=== PATIENT | female | born 1945 | race Caucasian/White ===

== ENCOUNTER 2017-07-14 18:53 | Emergency (ER) | payer MEDICARE | END 2017-07-14 20:40 | disposition left against medical advice (07) | LOC: ER 18:53 | DX: Z53.21 Procedure and treatment not carried out due to patient leaving prior to being seen by health care provider (principal) ==

== ENCOUNTER → 2017-07-14 | Outpatient (CLI) | payer MEDICARE ==
[~2017-07-14] MED LIST: ACEASPCAF PO; CYCL10 PO; GABA100 PO; GLIM2 PO; HYDACE5325 PO; IBUP800 PO; INSULANPEN PO; LISI5 PO; METF500 PO; OXYACE5T PO; RXCYCL10 PO; RXHYD5325 PO
[2017-07-14 16:39] LABS: BASOPHILS ABSOLUTE AUTO 0.06 K/mm3 (0.00-0.23); BASOPHILS PERCENT AUTO 1 % (0-2); EOSINOPHILS ABSOLUTE AUTO 0.04 K/mm3 (0.00-0.68); EOSINOPHILS PERCENT AUTO 0 % (0-6); Hematocrit 37.7 % (33.0-51.0); Hemoglobin 12.7 g/dL (11.5-16.0); IMMATURE GRAN ABSOLUTE AUTO 0.05 K/mm3 (0.00-0.10); IMMATURE GRAN PERCENT AUTO 0 % (0-1); LYMPHOCYTES ABSOLUTE AUTO 1.42 K/mm3 (0.84-5.20); LYMPHOCYTES PERCENT AUTO 12 % (21-46); MONOCYTES ABSOLUTE AUTO 1.25 K/mm3 (0.16-1.47); MONOCYTES PERCENT AUTO 11 % (4-13); Mean Corpuscular HGB 28.7 pg (26.0-34.0); Mean Corpuscular HGB Conc 33.7 g/dL (31.5-36.5); Mean Corpuscular Volume 85 fL (80-100); Mean Platelet Volume 12.1 fL (9.1-12.4); NEUTROPHILS ABSOLUTE AUTO 9.14 K/mm3 (1.96-9.15); NEUTROPHILS PERCENT AUTO 76 % (41-73); Platelet Count 253 K/mm3 (150-400); RDW Coefficient Variation 13.6 % (11.7-14.2); RDW Standard Deviation 42.5 fL (35.1-46.3); Red Blood Cell Count 4.43 M/mm3 (3.80-5.20); White Blood Cell Count 11.96 K/mm3 (4.00-11.30)
[2017-07-14 16:42] LABS: Bun/Creatinine Ratio 18.9 (12.0-20.0); Creatinine, Blood 1.43 mg/dL (0.40-1.00); Potassium, Blood 4.7 mmol/L (3.5-5.5)
== END | disposition home or self-care (01) ==
LOC: LAB EV 16:33
PROVIDERS: Physician Assistant Surgical
DX: N39.0 Urinary tract infection, site not specified (principal)
CPT/HCPCS: 80048; 85025; 87077; 87086; 87186

== ENCOUNTER → 2017-07-15 | Outpatient (CLI) | payer MEDICARE ==
[2017-07-15 08:48] LABS: BASOPHILS ABSOLUTE AUTO 0.06 K/mm3 (0.00-0.23); BASOPHILS PERCENT AUTO 1 % (0-2); EOSINOPHILS ABSOLUTE AUTO 0.16 K/mm3 (0.00-0.68); EOSINOPHILS PERCENT AUTO 2 % (0-6); Hematocrit 35.6 % (33.0-51.0); Hemoglobin 12.1 g/dL (11.5-16.0); IMMATURE GRAN ABSOLUTE AUTO 0.03 K/mm3 (0.00-0.10); IMMATURE GRAN PERCENT AUTO 0 % (0-1); LYMPHOCYTES ABSOLUTE AUTO 1.23 K/mm3 (0.84-5.20); LYMPHOCYTES PERCENT AUTO 12 % (21-46); MONOCYTES ABSOLUTE AUTO 1.18 K/mm3 (0.16-1.47); MONOCYTES PERCENT AUTO 12 % (4-13); Mean Corpuscular HGB 28.7 pg (26.0-34.0); Mean Corpuscular Volume 84 fL (80-100); NEUTROPHILS ABSOLUTE AUTO 7.62 K/mm3 (1.96-9.15); NEUTROPHILS PERCENT AUTO 74 % (41-73); Platelet Count 235 K/mm3 (150-400); RDW Coefficient Variation 13.5 % (11.7-14.2); RDW Standard Deviation 41.8 fL (35.1-46.3); Red Blood Cell Count 4.22 M/mm3 (3.80-5.20); White Blood Cell Count 10.28 K/mm3 (4.00-11.30)
[2017-07-15 08:58] LABS: Calcium, Blood 8.8 mg/dL (8.5-10.1); Creatinine, Blood 1.22 mg/dL (0.40-1.00); Potassium, Blood 4.5 mmol/L (3.5-5.5)
== END ==
LOC: LAB EV 08:42
PROVIDERS: Physician Assistant Surgical
DX: R42 Dizziness and giddiness (principal)
CPT/HCPCS: 80048; 85025

== ENCOUNTER 2018-09-20 15:22 | Inpatient (IN) | payer MEDICARE ==
[~2018-09-20] VITALS: Ht 165.1 cm; Wt 71.7 kg
[~2018-09-20 15:22] MED LIST changes: -GABA100 PO; +GABA300 PO; -INSULANPEN PO; +INSULANPEN SC; -LISI5 PO; +Prinivil10 MG PO
[2018-09-20 16:41] LABS: BASOPHILS ABSOLUTE AUTO 0.06 K/mm3 (0.00-0.23); BASOPHILS PERCENT AUTO 1 % (0-2); EOSINOPHILS ABSOLUTE AUTO 0.16 K/mm3 (0.00-0.68); EOSINOPHILS PERCENT AUTO 2 % (0-6); Hematocrit 35.9 % (33.0-51.0); Hemoglobin 11.7 g/dL (11.5-16.0); IMMATURE GRAN ABSOLUTE AUTO 0.05 K/mm3 (0.00-0.10); IMMATURE GRAN PERCENT AUTO 1 % (0-1); LYMPHOCYTES ABSOLUTE AUTO 1.94 K/mm3 (0.84-5.20); LYMPHOCYTES PERCENT AUTO 19 % (21-46); MONOCYTES ABSOLUTE AUTO 0.77 K/mm3 (0.16-1.47); MONOCYTES PERCENT AUTO 8 % (4-13); Mean Corpuscular HGB 28.5 pg (26.0-34.0); Mean Corpuscular HGB Conc 32.6 g/dL (31.5-36.5); Mean Corpuscular Volume 87 fL (80-100); NEUTROPHILS ABSOLUTE AUTO 7.23 K/mm3 (1.96-9.15); NEUTROPHILS PERCENT AUTO 71 % (41-73); Platelet Count 237 K/mm3 (150-400); RDW Coefficient Variation 13.9 % (11.7-14.2); RDW Standard Deviation 44.6 fL (35.1-46.3); Red Blood Cell Count 4.11 M/mm3 (3.80-5.20); White Blood Cell Count 10.21 K/mm3 (4.00-11.30)
[2018-09-20] MEDS ORDERED: Prozac20 MG PO (16:52)
[2018-09-20 16:54] LABS: Albumin, Blood 3.7 g/dL (3.4-5.0); Bilirubin, Total 0.3 mg/dL (0.1-1.0); Bun/Creatinine Ratio 16.1 (12.0-20.0); Calcium, Blood 8.8 mg/dL (8.5-10.1); Creatinine, Blood 1.37 mg/dL (0.40-1.00); Globulin, Blood 3.6 g/dL (2.2-4.0); Potassium, Blood 4.8 mmol/L (3.5-5.5); Total Protein, Blood 7.3 g/dL (6.4-8.2)
[2018-09-20] MEDS ORDERED: AMLO5 PO (16:54)
[2018-09-20] MEDS ORDERED: GLIP2.5ER PO (16:55)
[2018-09-20] MEDS ORDERED: GABA300 PO (17:05)
[2018-09-20] MEDS ORDERED: Aspirin EC81 MG PO (17:08)
--- NOTE | 2018-09-20 19:02 | NUR ---
admit to room per liz, oriented to call system
--- NOTE | 2018-09-21 05:08 | NUR ---
PT ADMITTED FROM ED LAST NIGHT AT APPROX 1900 FOR RIGHT HIP FX. ORTHO CONULT ANSWERING MACHINE NOTIFIED. PT A&O X4, VS WNL. GIVEN 100 MCG OF FENTANYL AND 1MG DILAUDID BEFORE ARRIVING TO UNIT. WILL CTM PAIN AND TX PER EMAR.
[2018-09-21 05:59] LABS: Source, Urine Clean Catch
[2018-09-21 06:11] LABS: BASOPHILS ABSOLUTE AUTO 0.06 K/mm3 (0.00-0.23); BASOPHILS PERCENT AUTO 1 % (0-2); EOSINOPHILS ABSOLUTE AUTO 0.01 K/mm3 (0.00-0.68); EOSINOPHILS PERCENT AUTO 0 % (0-6); Hematocrit 34.6 % (33.0-51.0); IMMATURE GRAN ABSOLUTE AUTO 0.07 K/mm3 (0.00-0.10); IMMATURE GRAN PERCENT AUTO 1 % (0-1); LYMPHOCYTES ABSOLUTE AUTO 0.96 K/mm3 (0.84-5.20); LYMPHOCYTES PERCENT AUTO 8 % (21-46); MONOCYTES PERCENT AUTO 8 % (4-13); Mean Corpuscular HGB 28.1 pg (26.0-34.0); Mean Corpuscular HGB Conc 31.8 g/dL (31.5-36.5); Mean Corpuscular Volume 89 fL (80-100); Mean Platelet Volume 12.1 fL (9.1-12.4); NEUTROPHILS PERCENT AUTO 83 % (41-73); Platelet Count 205 K/mm3 (150-400); RDW Coefficient Variation 14.3 % (11.7-14.2); Red Blood Cell Count 3.91 M/mm3 (3.80-5.20)
[2018-09-21 06:13] LABS: Appearance, Urine Clear (Clear); Bilirubin, Urine Neg (Neg); Blood, Urine Neg (Neg); Color, Urine Yellow (P-Yellow); Glucose Qualitative, Urine Neg (Neg); Ketones, Urine Neg (Neg); Leukocyte Esterase, Urine 1+ (Neg); Nitrite, Urine Neg (Neg); Protein, Urine 1+ (Neg); Urobilinogen, Urine NORM (Normal)
[2018-09-21 06:20] LABS: Bacteria Rare /hpf; Mucus Light (0-Heavy); Red Blood Cells, Urine Not Seen /hpf (0-2); Squamous Epithelial Cells Few /hpf (Few); White Blood Cells, Urine 0-2 /hpf (0-5)
[2018-09-21 06:49] LABS: Bun/Creatinine Ratio 26.5 (12.0-20.0); Calcium, Blood 8.3 mg/dL (8.5-10.1); Creatinine, Blood 1.02 mg/dL (0.40-1.00); Potassium, Blood 4.6 mmol/L (3.5-5.5)
--- NOTE | 2018-09-21 13:19 | NUR ---
Discharge instructions reviewed with patient. Patient verbalizes understanding. Copy given to patient to take home. PATIENT DENIES NAUSEA. MEDICATED FOR PAIN. ABLE TO STAND AND WALK STEADY ON FEET. Discharged via wheelchair to private car for ride home.
--- NOTE | 2018-09-21 14:20 | NUR ---
PT TAKEN TO O.R.
--- NOTE | 2018-09-21 14:21 | NUR ---
PT INTO SDS VIA BED FROM 218. PT MEDICATED FOR PAIN, DROWSY. ABLE TO RESOPND APPROPRAITLY TO QUESTIONS. SPO2 MID 80'S ON ROOM AIR, PLACED ONTO 3LNC. SPO2 INCREASED TO 95%. History, Chart, Medications and Allergies reviewed before start of procedure.Patient confirms NPO status and agrees with scheduled surgery.
--- NOTE | 2018-09-21 16:03 | NUR ---
09/21/18 1603 Frankie Jones PT ARRIVED TO OR WITH ACEVEDO CATH IN PLACE. PT HAD ANCEF 2GRAMS IVPB GIVEN BY DR RAMON AT 1535.
--- NOTE | 2018-09-21 17:42 | NUR ---
SHIFT SUMMARY PT A&OX4, VSS, R HIP CLOSED FX, PAIN MANAGED PER EMAR. NPO. WENT TO OR AT 1400 FOR REPAIR. WILL GIVE REPORT TO ONCOMING NOEL SCHMIDT.
--- NOTE | 2018-09-22 04:42 | NUR ---
SHIFT SUMMARY: PT POD #1 FOR NAILING OF R HIP. DISORIENTED TO TIME AND PLACE UPON WAKING UP. PT IS ABLE TO RECALL EVENT. AQUACEL TO RIGHT HIP CDI. ICE PACK IN PLACE. POOR PO INTAKE, FLUIDS INFUSING. DENIES N/V. GIVEN NORCO 10MG FOR PAIN PER EMAR. PT SLEEPING MOST OF SHIFT. VS WNL. O2 AT 93% ON 3L O2. PT ENC TO DEEP BREATH. ACEVEDO IN PLACE AND DRAINING CLEAR YELLOW URINE.
[2018-09-22 05:00] LABS: BASOPHILS ABSOLUTE AUTO 0.03 K/mm3 (0.00-0.23); BASOPHILS PERCENT AUTO 0 % (0-2); EOSINOPHILS ABSOLUTE AUTO 0.02 K/mm3 (0.00-0.68); EOSINOPHILS PERCENT AUTO 0 % (0-6); Hematocrit 26.9 % (33.0-51.0); Hemoglobin 8.8 g/dL (11.5-16.0); IMMATURE GRAN ABSOLUTE AUTO 0.04 K/mm3 (0.00-0.10); IMMATURE GRAN PERCENT AUTO 0 % (0-1); LYMPHOCYTES ABSOLUTE AUTO 1.39 K/mm3 (0.84-5.20); LYMPHOCYTES PERCENT AUTO 12 % (21-46); MONOCYTES ABSOLUTE AUTO 1.24 K/mm3 (0.16-1.47); MONOCYTES PERCENT AUTO 11 % (4-13); Mean Corpuscular HGB 28.9 pg (26.0-34.0); Mean Corpuscular HGB Conc 32.7 g/dL (31.5-36.5); Mean Corpuscular Volume 89 fL (80-100); Mean Platelet Volume 11.7 fL (9.1-12.4); NEUTROPHILS ABSOLUTE AUTO 8.81 K/mm3 (1.96-9.15); NEUTROPHILS PERCENT AUTO 76 % (41-73); Platelet Count 157 K/mm3 (150-400); RDW Coefficient Variation 14.2 % (11.7-14.2); RDW Standard Deviation 45.5 fL (35.1-46.3); Red Blood Cell Count 3.04 M/mm3 (3.80-5.20); White Blood Cell Count 11.53 K/mm3 (4.00-11.30)
--- NOTE | 2018-09-22 16:49 | NUR ---
SHIFT SUMMARY PT A&OX4, VSS, RA >92%, CBG'S COVERAGE INDICATED. POD1 L HIP NAIL, 2 AQUACEL CDI. PAIN MANAGED W/5 MG NORCO. BOB PO, DENIES N&V, BOB PO, INTAKE IMPROVED TODAY. KRISTINA DC'D, AWAITING POST VOID. AMB 2 PP MAX ASSIST TO CHAIR, BEEN IN CHAIR T/O SHIFT, HAD PT STAND AND DO LEG/FEET EXERCISES X1. PLEASANT & COOPERATIVE. REPORT GIVEN TO BORA SCHMIDT.
--- NOTE | 2018-09-22 17:02 | NUR ---
ASSUMED CARE OF PATIENT AT THIS TIME.
[2018-09-23 04:40] LABS: BASOPHILS ABSOLUTE AUTO 0.04 K/mm3 (0.00-0.23); BASOPHILS PERCENT AUTO 0 % (0-2); EOSINOPHILS ABSOLUTE AUTO 0.08 K/mm3 (0.00-0.68); EOSINOPHILS PERCENT AUTO 1 % (0-6); Hematocrit 28.8 % (33.0-51.0); Hemoglobin 9.5 g/dL (11.5-16.0); IMMATURE GRAN ABSOLUTE AUTO 0.08 K/mm3 (0.00-0.10); IMMATURE GRAN PERCENT AUTO 1 % (0-1); LYMPHOCYTES ABSOLUTE AUTO 0.96 K/mm3 (0.84-5.20); LYMPHOCYTES PERCENT AUTO 8 % (21-46); MONOCYTES ABSOLUTE AUTO 1.37 K/mm3 (0.16-1.47); MONOCYTES PERCENT AUTO 11 % (4-13); Mean Corpuscular HGB 29.6 pg (26.0-34.0); Mean Corpuscular Volume 90 fL (80-100); NEUTROPHILS ABSOLUTE AUTO 9.89 K/mm3 (1.96-9.15); NEUTROPHILS PERCENT AUTO 80 % (41-73); Platelet Count 152 K/mm3 (150-400); Red Blood Cell Count 3.21 M/mm3 (3.80-5.20); White Blood Cell Count 12.42 K/mm3 (4.00-11.30)
--- NOTE | 2018-09-23 07:50 | NUR ---
18G IV PRESENT TO RFA UPON ASSESSMENT. WNL AT THIS TIME.
--- NOTE | 2018-09-23 11:55 | NUR ---
DISCHARGE REPORT WAS CALLED TO LIBRADO SCHMIDT AT [facility] AT APPROXIMATELY 1045. PT WAS DISCHARGED WITH [facility] AT 1105. ORDERS, SCRIPTS, AND DRESSINGS PROVIDED FOR UV. PT GIVEN PAIN MEDICATION PRIOR TO DISCHARGE. BOWEL CARE GIVEN PRIOR TO DISCHARGE AND LIBRADO SCHMIDT NOTIFIED THAT PT REPORTED LAST BM ON 09/20/18.
--- NOTE | 2018-09-23 12:01 | NUR ---
IV REMOVED PRIOR TO DISCHARGE.
== END 2018-09-23 11:05 | DRG 482 ==
LOC: ER 15:22 → SURS 17:44
PROVIDERS: Emergency Medicine; Orthopaedic Surgery; ADMIT Hospitalist
PROC: 0QS636Z Reposition Right Upper Femur with Intramedullary Internal Fixation Device, Percutaneous Approach (ICD-10-PCS; principal; 2018-09-21 14:15)
DX: S72.141A Displaced intertrochanteric fracture of right femur, initial encounter for closed fracture (principal); W18.30XA Fall on same level, unspecified, initial encounter; I10 Essential (primary) hypertension; F41.9 Anxiety disorder, unspecified; E11.40 Type 2 diabetes mellitus with diabetic neuropathy, unspecified; Z79.4 Long term (current) use of insulin
CPT/HCPCS: 36415; 71045; 73502; 73552; 80048; 80053; 81001; 82947; 85025; 87086; 93005; 93010; 96374; 96376; 97162; 97530; 99285-25; A9270-GY; C1713; C1769; J0690; J1170; J1650; J2060; J2270; J2704; J3010; J3480; J7120

== ENCOUNTER → 2019-01-16 | Outpatient (CLI) | payer MEDICARE ==
[~2019-01-16] MED LIST changes: +AMLO5 PO; +Aspirin EC81 MG PO; +GLIP2.5ER PO; +Prozac20 MG PO
[2019-01-18 16:07] LABS: HPV 16 Negative (Negative); HPV 18 Negative (Negative); HPV OTHER HR TYPES Negative (Negative)
== END | disposition home or self-care (01) ==
LOC: LAB SHORT 17:19 → LAB 17:19
PROVIDERS: Nurse Practitioner Women's Health
DX: Z12.72 Encounter for screening for malignant neoplasm of vagina (principal)
CPT/HCPCS: 87624; G0123

== ENCOUNTER 2020-02-24 10:15 | Emergency (ER) | payer MEDICARE ==
[~2020-02-24] VITALS: Ht 160 cm; Wt 65.8 kg
[2020-02-24 10:55] LABS: Calcium, Ionized (POC) 1.21 mmol/L (1.10-1.46); Chloride (POC) 103 mmol/L (98-108); Glucose (ISTAT POC) 174 mg/dL (70-99); Hemoglobin (POC) 15.3 g/dL (12.0-16.0); Potassium (POC) 4.1 mmol/L (3.5-5.5); Sodium (POC) 139 mmol/L (135-148); Total CO2 (POC) 23 mmol/L (21-32)
[2020-02-24] MEDS ORDERED: DOCU100 PO (12:31)
[2020-02-24] MEDS ORDERED: SENNA LAXATIVE8.6 MG PO (12:45)
== END 2020-02-24 12:59 | disposition home or self-care (01) ==
LOC: ER 10:15
PROVIDERS: Emergency Medicine
DX: K59.00 Constipation, unspecified (principal); S36.63XA Laceration of rectum, initial encounter; I10 Essential (primary) hypertension; E11.9 Type 2 diabetes mellitus without complications; Z79.4 Long term (current) use of insulin; Z79.82 Long term (current) use of aspirin; Z79.899 Other long term (current) drug therapy; X50.9XXA Other and unspecified overexertion or strenuous movements or postures, initial encounter
CPT/HCPCS: 36415; 74019; 80047; 85014

== ENCOUNTER → 2021-10-23 | Outpatient (CLI) | payer MEDICARE ==
[~2021-10-23] MED LIST changes: +DOCU100 PO; +ONDA4ODT MM; +PRAVASTATIN SOD10 MG; +Ropinirole HCl0.5 MG; +SENNA LAXATIVE8.6 MG PO; +TRAM50
[2021-10-23 10:58] LABS: Source, Urine Voided
[2021-10-23 12:10] LABS: Appearance, Urine Clear (Clear); Bilirubin, Urine Neg (Neg); Blood, Urine Neg (Neg); Color, Urine Yellow (P-Yellow); Glucose Qualitative, Urine Neg (Neg); Ketones, Urine Neg (Neg); Leukocyte Esterase, Urine 3+ (Neg); Nitrite, Urine Pos (Neg); Protein, Urine Neg (Neg); Urobilinogen, Urine NORM (Normal)
[2021-10-23 12:13] LABS: Potassium, Urine, Random 7.7 mmol/L (12.0-75.0)
[2021-10-23 13:03] LABS: Red Blood Cells, Urine 0-2 /hpf (0-2)
[2021-10-23 13:04] LABS: Bacteria Many /hpf; Squamous Epithelial Cells Not Seen /hpf (Few)
== END | disposition home or self-care (01) ==
LOC: LAB 10:54 → LAB SHORT 10:54
PROVIDERS: Internal Medicine Nephrology
DX: N18.31 Chronic kidney disease, stage 3a (principal)
CPT/HCPCS: 81001; 83935; 84133

== ENCOUNTER → 2023-03-21 | Outpatient (CLI) | payer MEDICARE ==
[2023-03-21 18:08] LABS: U Amphetamine Screen Not Detected; U Barbituate Screen Not Detected; U Benzodiazapine Screen Not Detected; U Buprenorphine Screen Not Detected; U Cannabinoids Screen Not Detected; U Cocaine Screen Not Detected; U Methadone Screen Not Detected; U Methamphetamine Screen Not Detected; U Opiates Screen Not Detected; U Oxycodone Screen Not Detected; U Phencyclidine Screen Not Detected; U Propoxyphene Screen Not Detected
== END ==
LOC: LAB 16:06 → LAB SHORT 16:06
PROVIDERS: Family Medicine
DX: Z51.81 Encounter for therapeutic drug level monitoring (principal); Z79.891 Long term (current) use of opiate analgesic

== ENCOUNTER → 2023-12-05 | Outpatient (CLI) | payer MEDICARE ==
[2023-12-05 17:26] LABS: Creatinine, Urine Random 59.6 mg/dL (27.00-270.00)
== END ==
LOC: LAB 15:23 → LAB SHORT 15:23
PROVIDERS: Family Medicine
DX: E11.9 Type 2 diabetes mellitus without complications (principal)
CPT/HCPCS: 82043; 82570

== ENCOUNTER 2024-02-29 12:48 | Observation (INO) | payer MEDICARE ==
[~2024-02-29] VITALS: Ht 165.1 cm; Wt 63.1 kg
[~2024-02-29 12:48] MED LIST changes: -TRAM50; +TRAM50 PO
[2024-02-29 14:30] LABS: BASOPHILS ABSOLUTE AUTO 0.08 K/mm3 (0.00-0.23); BASOPHILS PERCENT AUTO 1 % (0-2); EOSINOPHILS ABSOLUTE AUTO 0.09 K/mm3 (0.00-0.68); EOSINOPHILS PERCENT AUTO 1 % (0-6); Hematocrit 31.9 % (33.0-51.0); Hemoglobin 10.7 g/dL (11.5-16.0); IMMATURE GRAN ABSOLUTE AUTO 0.11 K/mm3 (0.00-0.10); IMMATURE GRAN PERCENT AUTO 1 % (0-1); LYMPHOCYTES ABSOLUTE AUTO 1.44 K/mm3 (0.84-5.20); LYMPHOCYTES PERCENT AUTO 9 % (21-46); MONOCYTES ABSOLUTE AUTO 0.77 K/mm3 (0.16-1.47); MONOCYTES PERCENT AUTO 5 % (4-13); Mean Corpuscular HGB 29.3 pg (26.0-34.0); Mean Corpuscular HGB Conc 33.5 g/dL (31.5-36.5); Mean Corpuscular Volume 87 fL (80-100); NEUTROPHILS ABSOLUTE AUTO 12.87 K/mm3 (1.96-9.15); NEUTROPHILS PERCENT AUTO 84 % (41-73); Platelet Count 527 K/mm3 (150-400); RDW Coefficient Variation 14.6 % (11.7-14.2); RDW Standard Deviation 47.2 fL (35.1-46.3); Red Blood Cell Count 3.65 M/mm3 (3.80-5.20); White Blood Cell Count 15.36 K/mm3 (4.00-11.30)
[2024-02-29 14:53] LABS: Albumin, Blood 2.7 g/dL (3.4-5.0); Albumin/Globulin Ratio 0.6 (0.8-1.8); Bilirubin, Total 0.5 mg/dL (0.1-1.0); Bun/Creatinine Ratio 15.3 (12.0-20.0); Calcium, Blood 9.6 mg/dL (8.5-10.1); Creatinine, Blood 1.44 mg/dL (0.40-1.00); Globulin, Blood 4.6 g/dL (2.2-4.0); Potassium, Blood 4.6 mmol/L (3.5-5.5); Total Protein, Blood 7.3 g/dL (6.4-8.2)
[2024-02-29] MEDS ORDERED: ATOR10 PO (21:02)
[2024-02-29] MEDS ORDERED: NS 1,000 ML IV SCH (21:35)
[2024-03-01 00:01] LABS: Source, Urine Clean Catch
[2024-03-01 00:17] LABS: Bilirubin, Urine Neg (Neg); Blood, Urine 3+ (Neg); Glucose Qualitative, Urine Neg (Neg); Ketones, Urine Neg (Neg); Leukocyte Esterase, Urine 3+ (Neg); Nitrite, Urine Neg (Neg); Protein, Urine 2+ (Neg); Urobilinogen, Urine NORM (Normal)
[2024-03-01 00:46] LABS: Appearance, Urine Hazy (Clear); Color, Urine Yellow (P-Yellow)
[2024-03-01 00:47] LABS: Bacteria Many /hpf; Red Blood Cells, Urine 0-2 /hpf (0-2); Squamous Epithelial Cells Few /hpf (Few); White Blood Cells, Urine 50-100 /hpf (0-5)
[2024-03-01] MEDS ORDERED: CefTRIAXone Sodium 1,000 MG in NS 100 ML IV ONE (01:05)
[2024-03-01] MEDS ORDERED: Acetaminophen 325 MG TABLET PO PRN (01:50)
[2024-03-01] MEDS ORDERED: Ondansetron HCl 2 MG / ML 2ML Vial IV PRN (01:50)
[2024-03-01 03:32] LABS: BASOPHILS ABSOLUTE AUTO 0.11 K/mm3 (0.00-0.23); BASOPHILS PERCENT AUTO 1 % (0-2); EOSINOPHILS ABSOLUTE AUTO 0.29 K/mm3 (0.00-0.68); EOSINOPHILS PERCENT AUTO 2 % (0-6); Hematocrit 28.1 % (33.0-51.0); Hemoglobin 9.1 g/dL (11.5-16.0); IMMATURE GRAN ABSOLUTE AUTO 0.08 K/mm3 (0.00-0.10); IMMATURE GRAN PERCENT AUTO 1 % (0-1); LYMPHOCYTES ABSOLUTE AUTO 1.34 K/mm3 (0.84-5.20); LYMPHOCYTES PERCENT AUTO 10 % (21-46); MONOCYTES ABSOLUTE AUTO 1.02 K/mm3 (0.16-1.47); MONOCYTES PERCENT AUTO 7 % (4-13); Mean Corpuscular HGB 28.5 pg (26.0-34.0); Mean Corpuscular HGB Conc 32.4 g/dL (31.5-36.5); Mean Corpuscular Volume 88 fL (80-100); Mean Platelet Volume 10.5 fL (9.1-12.4); NEUTROPHILS ABSOLUTE AUTO 11.31 K/mm3 (1.96-9.15); NEUTROPHILS PERCENT AUTO 80 % (41-73); Platelet Count 486 K/mm3 (150-400); RDW Coefficient Variation 14.7 % (11.7-14.2); RDW Standard Deviation 47.2 fL (35.1-46.3); Red Blood Cell Count 3.19 M/mm3 (3.80-5.20); White Blood Cell Count 14.15 K/mm3 (4.00-11.30)
[2024-03-01 03:57] LABS: Albumin, Blood 2.2 g/dL (3.4-5.0); Albumin/Globulin Ratio 0.6 (0.8-1.8); Bilirubin, Total 0.3 mg/dL (0.1-1.0); Bun/Creatinine Ratio 16.3 (12.0-20.0); Calcium, Blood 8.6 mg/dL (8.5-10.1); Creatinine, Blood 1.47 mg/dL (0.40-1.00); Magnesium, Blood 2.1 mg/dL (1.6-2.4); Potassium, Blood 4.4 mmol/L (3.5-5.5); Total Protein, Blood 6.2 g/dL (6.4-8.2)
[2024-03-01 07:12] LABS: Percent Saturation 9.4 % (15.0-50.0)
[2024-03-01] MEDS ORDERED: Insulin Human Lispro 100 Units/ML 3ML Syringe SC SCH (07:30)
[2024-03-01] MEDS ORDERED: Lactobacil 2-S.Thermo-Bifido 1 1 Cap PO SCH (09:00)
[2024-03-01] MEDS ORDERED: Enoxaparin 40 MG/0.4 ML SYR SC SCH (09:00)
[2024-03-01] MEDS ORDERED: D5W-NS 1,000 ML IV SCH (10:00)
[2024-03-01] MEDS ORDERED: Lactated Ringer's 1,000 ML IV SCH (12:01)
[2024-03-01] MEDS ORDERED: OMEP20ER PO (13:26)
[2024-03-01] MEDS ORDERED: CYCLOBENZAPRINE5 MG PO (13:33)
[2024-03-01 15:34] LABS: Hematocrit 32.1 % (33.0-51.0); Hemoglobin 10.5 g/dL (11.5-16.0); Mean Corpuscular HGB 29.1 pg (26.0-34.0); Mean Corpuscular HGB Conc 32.7 g/dL (31.5-36.5); Mean Corpuscular Volume 89 fL (80-100); Mean Platelet Volume 10.1 fL (9.1-12.4); Platelet Count 551 K/mm3 (150-400); RDW Coefficient Variation 14.6 % (11.7-14.2); RDW Standard Deviation 47.5 fL (35.1-46.3); Red Blood Cell Count 3.61 M/mm3 (3.80-5.20); White Blood Cell Count 12.85 K/mm3 (4.00-11.30)
[2024-03-01 15:51] VITALS: BP 148/53
--- NOTE | 2024-03-01 16:56 | NUR ---
ADMISSION NOTE: PATIENT ADMITTED TO MED FLOOR FROM ER AT 1310. PATIENT TRASNPORTED VIA HOSPITAL BED AND TRANSFERRED SBAX1. PHYSICAL THERAPY CAME TO ASSESS PATIENT, PATIENT IS TO BE SBAX1 WITH GAIT BELT. STARTED ON LR AT 100ML/HR. PATIENT IS A&OX4 AND COOPERATIVE OF CARES. PATIENT HAS ONE SCAB TO ANTERIOR LEFT KNEE AND BRUISE TO RIGHT INNER THIGH.
[2024-03-01 20:12] VITALS: BP 167/60
[2024-03-01] MEDS ORDERED: CefTRIAXone Sodium 1,000 MG in NS 100 ML IV SCH (21:00)
--- NOTE | 2024-03-02 03:16 | NUR ---
SHIFT SUMMARY NO ACUTE EVENTS DURING THIS SHIFT. C/O NAUSEA, ZOFRAN EFFECTIVE. PT AMBULATES WELL WITH STANDBY ASSIST. SOME DISCOMFORT ON ABDOMEN DURING THIS SHIFT. NO EMESIS. BED AT THE LOWEST POSITION, CALL LIGHT WITHIN REACH. PT IS ABLE TO MAKE HER NEEDS KNOWN.
[2024-03-02 05:48] LABS: BASOPHILS ABSOLUTE AUTO 0.11 K/mm3 (0.00-0.23); BASOPHILS PERCENT AUTO 1 % (0-2); EOSINOPHILS ABSOLUTE AUTO 0.14 K/mm3 (0.00-0.68); EOSINOPHILS PERCENT AUTO 1 % (0-6); Hematocrit 29.8 % (33.0-51.0); Hemoglobin 9.6 g/dL (11.5-16.0); IMMATURE GRAN ABSOLUTE AUTO 0.07 K/mm3 (0.00-0.10); IMMATURE GRAN PERCENT AUTO 1 % (0-1); LYMPHOCYTES ABSOLUTE AUTO 1.31 K/mm3 (0.84-5.20); LYMPHOCYTES PERCENT AUTO 10 % (21-46); MONOCYTES PERCENT AUTO 6 % (4-13); Mean Corpuscular HGB 28.9 pg (26.0-34.0); Mean Corpuscular HGB Conc 32.2 g/dL (31.5-36.5); Mean Corpuscular Volume 90 fL (80-100); Mean Platelet Volume 10.5 fL (9.1-12.4); NEUTROPHILS ABSOLUTE AUTO 11.41 K/mm3 (1.96-9.15); NEUTROPHILS PERCENT AUTO 82 % (41-73); Platelet Count 519 K/mm3 (150-400); RDW Coefficient Variation 14.8 % (11.7-14.2); Red Blood Cell Count 3.32 M/mm3 (3.80-5.20); White Blood Cell Count 13.84 K/mm3 (4.00-11.30)
[2024-03-02 05:59] VITALS: BP 146/57
[2024-03-02 07:51] VITALS: BP 155/65
[2024-03-02 07:59] LABS: Albumin, Blood 2.4 g/dL (3.4-5.0); Albumin/Globulin Ratio 0.6 (0.8-1.8); Bilirubin, Total 0.3 mg/dL (0.1-1.0); Bun/Creatinine Ratio 14.5 (12.0-20.0); Calcium, Blood 8.9 mg/dL (8.5-10.1); Creatinine, Blood 1.1 mg/dL (0.40-1.00); Globulin, Blood 4.3 g/dL (2.2-4.0); Potassium, Blood 4.3 mmol/L (3.5-5.5); Total Protein, Blood 6.7 g/dL (6.4-8.2)
[2024-03-02] MEDS ORDERED: Atorvastatin 40 MG Tab PO SCH (09:31)
[2024-03-02] MEDS ORDERED: Lisinopril 10 MG Tab PO SCH (09:32)
[2024-03-02] MEDS ORDERED: AmLODIPine Besylate 5 MG Tab PO SCH (09:32)
[2024-03-02] MEDS ORDERED: Omeprazole 20 MG CapCR PO SCH (09:56)
[2024-03-02] MEDS ORDERED: Cyclobenzaprine HCl 10 MG Tab PO PRN (10:10)
[2024-03-02] MEDS ORDERED: Cefpodoxime Pr100 MG PO (13:51)
[2024-03-02] MEDS ORDERED: ONDA4 PO (13:51)
[2024-03-02] MEDS ORDERED: VISBIOME 112.51 EACH PO (13:52)
--- NOTE | 2024-03-02 14:17 | NUR ---
DISCHARGE SUMMARY: PT DISCHARGED HOME WITH SON ACCOMPANYING HER. PT EDUCATED ON DISCHARGE MEDICATIONS AND INSTRUCTIONS. PT V/U. ASSISTED PT WITH GETTING DRESSED AND PACKING UP BELONGINGS. PT ESCORTED TO POV VIA WHEELCHAIR BY ANA.
[2024-03-02] MEDS ORDERED: Aspirin 81 MG TabEC PO SCH (21:00)
[2024-03-02] MEDS ORDERED: Gabapentin 300 MG Cap PO SCH (21:00)
== END 2024-03-02 14:13 | disposition home or self-care (01) ==
LOC: ER 12:48 → ERHOLD 12:49 → MEDS 03-01 13:15 → ENPENDDIS 03-02 13:09 → MEDS 03-02 14:13
PROVIDERS: Physician Assistant; Student in an Organized Health Care Education/Training Program; ADMIT Student in an Organized Health Care Education/Training Program
DX: N39.0 Urinary tract infection, site not specified (principal); A41.9 Sepsis, unspecified organism; E11.22 Type 2 diabetes mellitus with diabetic chronic kidney disease; I12.9 Hypertensive chronic kidney disease with stage 1 through stage 4 chronic kidney disease, or unspecified chronic kidney disease; N18.9 Chronic kidney disease, unspecified; N17.9 Acute kidney failure, unspecified; D50.9 Iron deficiency anemia, unspecified; E11.40 Type 2 diabetes mellitus with diabetic neuropathy, unspecified; Z88.5 Allergy status to narcotic agent; Z88.8 Allergy status to other drugs, medicaments and biological substances; Z79.82 Long term (current) use of aspirin; Z79.899 Other long term (current) drug therapy; Z79.4 Long term (current) use of insulin
CPT/HCPCS: 36415; 71046; 80053; 81001; 82728; 82947; 83540; 83550; 83735; 84484; 85025; 85027; 87077; 87086; 87186; 93005; 93010; 96361; 96365; 96366; 96372-59; 96375; 96376; 97116; 97161; 99285-25; A9270; G0378; J0696; J1650; J2405; J7030; J7042; J7120

== ENCOUNTER 2024-11-20 20:41 | Observation (INO) | payer MEDICARE ==
[~2024-11-20] VITALS: Ht 160 cm; Wt 58.0 kg
[~2024-11-20 20:41] MED LIST changes: +ATOR10 PO; +CYCLOBENZAPRINE5 MG PO; +Cefpodoxime Pr100 MG PO; +OMEP20ER PO; +ONDA4 PO; +VISBIOME 112.51 EACH PO
[2024-11-20 21:19] LABS: BASOPHILS ABSOLUTE AUTO 0.06 K/mm3 (0.00-0.23); BASOPHILS PERCENT AUTO 1 % (0-2); EOSINOPHILS ABSOLUTE AUTO 0.04 K/mm3 (0.00-0.68); EOSINOPHILS PERCENT AUTO 0 % (0-6); Hemoglobin 13.2 g/dL (11.5-16.0); IMMATURE GRAN ABSOLUTE AUTO 0.02 K/mm3 (0.00-0.10); IMMATURE GRAN PERCENT AUTO 0 % (0-1); LYMPHOCYTES ABSOLUTE AUTO 2.39 K/mm3 (0.84-5.20); LYMPHOCYTES PERCENT AUTO 23 % (21-46); MONOCYTES ABSOLUTE AUTO 0.62 K/mm3 (0.16-1.47); MONOCYTES PERCENT AUTO 6 % (4-13); Mean Corpuscular HGB 29.3 pg (26.0-34.0); Mean Corpuscular HGB Conc 34.7 g/dL (31.5-36.5); Mean Corpuscular Volume 84 fL (80-100); NEUTROPHILS ABSOLUTE AUTO 7.12 K/mm3 (1.96-9.15); NEUTROPHILS PERCENT AUTO 70 % (41-73); Platelet Count 290 K/mm3 (150-400); RDW Coefficient Variation 13.5 % (11.7-14.2); RDW Standard Deviation 41.5 fL (35.1-46.3); Red Blood Cell Count 4.51 M/mm3 (3.80-5.20); White Blood Cell Count 10.25 K/mm3 (4.00-11.30)
[2024-11-20 21:33] LABS: Albumin, Blood 4.4 g/dL (3.4-5.0); Albumin/Globulin Ratio 1.1 (0.8-1.8); Bilirubin, Total 0.8 mg/dL (0.1-1.0); Bun/Creatinine Ratio 15.2 (12.0-20.0); Creatinine, Blood 0.86 mg/dL (0.40-1.00); Potassium, Blood 3.2 mmol/L (3.5-5.5); Total Protein, Blood 8.4 g/dL (6.4-8.2)
[2024-11-20] MEDS ORDERED: NS 1,000 ML IV SCH (22:55)
[2024-11-20 23:15] LABS: Source, Urine Clean Catch
[2024-11-20 23:19] LABS: Appearance, Urine Clear (Clear); Bilirubin, Urine Neg (Neg); Blood, Urine Neg (Neg); Color, Urine Yellow (P-Yellow); Glucose Qualitative, Urine Neg (Neg); Ketones, Urine Neg (Neg); Leukocyte Esterase, Urine Neg (Neg); Nitrite, Urine Neg (Neg); Protein, Urine 2+ (Neg); Specific Gravity, Urine 1.005 (1.003-1.022); Urobilinogen, Urine NORM (Normal); pH, Urine 6.5 (5.0-8.0)
[2024-11-20 23:34] LABS: Bacteria Few /hpf; Red Blood Cells, Urine 0-2 /hpf (0-2); Squamous Epithelial Cells Few /hpf (Few); White Blood Cells, Urine 0-2 /hpf (0-5)
[2024-11-21] VITALS (15 sets, daily range): BP systolic 143–179; BP diastolic 55–101
[2024-11-21] MEDS ORDERED: Ondansetron HCl 2 MG / ML 2ML Vial IV PRN (00:45)
[2024-11-21] MEDS ORDERED: Acetaminophen 325 MG TABLET PO PRN (00:50)
[2024-11-21] MEDS ORDERED: Potassium Chloride 40 MEQ in NS 250 ML IV ONE (00:55)
[2024-11-21] MEDS ORDERED: NS 1,000 ML IV SCH (01:00)
--- NOTE | 2024-11-21 02:25 | NUR ---
ARRIVAL TO UNIT PT ARRIVED TO UNIT FROM ED VIA GOURNEY. PT ABLE TO STAND/PIVOT TO BED c SBA R/T LINE MANAGEMENT. A&O x4, RESPONDS TO QUESTIONS APPROPRIATELY, COOPERATIVE c CARE. AGREEABLE c NPO STATUS, DENIES N/V. ATTENDS IN USE. PT REPORTS ABD PAIN TOLERABLE c NON-PHARM INTERVENTIONS. WARM BLANKET PROVIDED. ORIENTED TO UNIT, CALL LIGHT IN REACH.
[2024-11-21] MEDS ORDERED: Cyclobenzaprine HCl 10 MG Tab PO PRN (03:35)
[2024-11-21] MEDS ORDERED: TraMADol HCl 50 MG Tab PO PRN (05:40)
--- NOTE | 2024-11-21 05:46 | NUR ---
SHIFT SUMMARY S/P ABD HERNIA. NO ACUTE CHANGES SINCE ARRIVAL TO UNIT. IV FLUIDS INFUSING PER EMAR. PT ASLEEP c RISE/FALL OF CHEST. CALL LIGHT IN REACH, BED IN LOWEST POSITION, WILL REPORT TO DAY RN.
[2024-11-21 05:52] LABS: BASOPHILS ABSOLUTE AUTO 0.08 K/mm3 (0.00-0.23); BASOPHILS PERCENT AUTO 1 % (0-2); EOSINOPHILS ABSOLUTE AUTO 0.06 K/mm3 (0.00-0.68); EOSINOPHILS PERCENT AUTO 1 % (0-6); Hematocrit 33.8 % (33.0-51.0); Hemoglobin 11.5 g/dL (11.5-16.0); IMMATURE GRAN ABSOLUTE AUTO 0.02 K/mm3 (0.00-0.10); IMMATURE GRAN PERCENT AUTO 0 % (0-1); LYMPHOCYTES ABSOLUTE AUTO 1.81 K/mm3 (0.84-5.20); LYMPHOCYTES PERCENT AUTO 20 % (21-46); MONOCYTES ABSOLUTE AUTO 0.76 K/mm3 (0.16-1.47); MONOCYTES PERCENT AUTO 8 % (4-13); Mean Corpuscular Volume 85 fL (80-100); Mean Platelet Volume 11.1 fL (9.1-12.4); NEUTROPHILS ABSOLUTE AUTO 6.46 K/mm3 (1.96-9.15); NEUTROPHILS PERCENT AUTO 70 % (41-73); Platelet Count 258 K/mm3 (150-400); RDW Coefficient Variation 13.5 % (11.7-14.2); RDW Standard Deviation 42.3 fL (35.1-46.3); Red Blood Cell Count 3.96 M/mm3 (3.80-5.20); White Blood Cell Count 9.19 K/mm3 (4.00-11.30)
[2024-11-21] MEDS ORDERED: Omeprazole 20 MG CapCR PO SCH (06:00)
[2024-11-21 06:05] LABS: International Normalized Ratio 1.03; Prothrombin Time Results 11.3 Sec (9.7-11.5)
[2024-11-21 06:59] LABS: Albumin, Blood 3.4 g/dL (3.4-5.0); Albumin/Globulin Ratio 1.1 (0.8-1.8); Bilirubin, Total 0.8 mg/dL (0.1-1.0); Bun/Creatinine Ratio 13.3 (12.0-20.0); Calcium, Blood 8.5 mg/dL (8.5-10.1); Creatinine, Blood 0.83 mg/dL (0.40-1.00); Potassium, Blood 4.1 mmol/L (3.5-5.5); Total Protein, Blood 6.4 g/dL (6.4-8.2)
[2024-11-21] MEDS ORDERED: TraMADol HCl 50 MG Tab PO SCH (09:00)
[2024-11-21] MEDS ORDERED: Lactobacil 2-S.Thermo-Bifido 1 1 Cap PO SCH (09:00)
[2024-11-21] MEDS ORDERED: Gabapentin 300 MG Cap PO SCH ×2 (09:00→21:00)
[2024-11-21] MEDS ORDERED: Docusate Sodium 100 MG Cap PO SCH (09:00)
[2024-11-21] MEDS ORDERED: AmLODIPine Besylate 5 MG Tab PO SCH (09:00)
[2024-11-21] MEDS ORDERED: Lactated Ringer's 1,000 ML IV SCH (13:50)
[2024-11-21] MEDS ORDERED: CeFAZolin Sodium 2,000 MG in NS 100 ML IV SCH (13:50)
[2024-11-21] MEDS ORDERED: D5W-1/2NS 1,000 ML IV SCH (14:00)
[2024-11-21] MEDS ORDERED: propofoL 20 ML IV ONE (14:08)
[2024-11-21] MEDS ORDERED: Midazolam HCl 1MG / ML 2ML Vial ONE (14:08)
[2024-11-21] MEDS ORDERED: Rocuronium Bromide 10 MG/ML 5ML Injection IV ONE ×2 (14:08→15:02)
[2024-11-21] MEDS ORDERED: FentaNYL Citrate 50 MCG/ML 2 ML Injection ONE (14:08)
[2024-11-21] MEDS ORDERED: Bupivacaine 0.5% HCl 5 MG/ML 30MLVIAL ONE (14:11)
--- NOTE | 2024-11-21 14:22 | NUR ---
TO DAY SURGERY @ 3748
--- NOTE | 2024-11-21 14:23 | NUR ---
History, Chart, Medications and Allergies reviewed before start of procedure.Patient confirms NPO status and agrees with scheduled surgery. Pre-Op teaching done. Pt verbalizes understanding.
[2024-11-21] MEDS ORDERED: Dexamethasone Sod Phos 10 MG/ML 1ML VIAL ONE (14:43)
[2024-11-21] MEDS ORDERED: Ondansetron HCl 2 MG / ML 2ML Vial ONE (14:43)
[2024-11-21] MEDS ORDERED: Phenylephrine HCl 100 MCG/ML-NS 10MLSYR (1MG/10ML) ONE (15:18)
[2024-11-21] MEDS ORDERED: Ketorolac Tromethamine 30mg Vial ONE ×2 (15:46)
[2024-11-21] MEDS ORDERED: Sugammadex Sodium 200 MG/2ML SDV (100 MG/ML) ONE (15:46)
--- NOTE | 2024-11-21 17:04 | NUR ---
POST-OP @ 1645 X3 LAP SITES C/D/I. PATIENT IS DROWSY AND SLIGHTLY CONFUSED. DENIES PAIN, BP ELEVATED 150/100, REASURRING PATIENT THAT SURGERY IS OVER AND SHE IS ALLOWED TO SIP ON CL. SON IN ROOM FOR SUPPORT. BED ALARM IS ON FOR SAFETY. CONTINUE POST-OP VITALS AND ORIENT NEEDED. CALL LIGHT WITH IN REACH.
--- NOTE | 2024-11-21 20:52 | NUR ---
DISCHARGE DATE 11/21/24 / TIME 1921: PT SON IS HERE TO GET PT AND TAKE HER HOME. IV D/C'D WITH CATH INTACT AND 2X2 GAUZE AND COBAN PLACED. INST PT AND SON TO LEAVE ON FOR 15-20 MINUTES THEN TAKE IT OFF. IF FOR SOME REASON IT IS STILL BLEEDING TO APPLY PRESSURE AND REPLACE GAUZE AND COBAN. SINCE THE COBAN IS IN RIGHT AC AREA EVERY TIME YOU BEND IT WILL ROLL UP ON ITSELF AND ACT LIKE A TOURNIQUET AND GET REALLY TIGHT. DISCHARGE INST READ TO PT AND SON. WRITTEN AND VERBAL DISCHAARGE INSTRUCTIONS GIVEN AND PATIENT AND SON HAVE NO FURTHER QUESTIONS OR CONCERNS. PATIENT BELONGINGS WITH SON. ELECTRIC POWER SUPERINTENDENT ASSISTED PT IN WC TO SON'S CAR. PT SOILED HER CLOTHES AND SON DIDNT BRING HER ANY SO SHE LEFT IN GOWN AND PANTS. DISCHARGE INSTRUCTIONS SINGED BY PATIENT AND THIS RN ON 11/21/24 AT 1922
[2024-11-21] MEDS ORDERED: Atorvastatin 10 MG Tab PO SCH (21:00)
[2024-11-21] MEDS ORDERED: Lisinopril 10 MG Tab PO SCH (21:00)
[2024-11-21] MEDS ORDERED: Aspirin 81 MG TabEC PO SCH (21:00)
== END 2024-11-21 19:30 | disposition home or self-care (01) ==
LOC: ER 20:41 → SURS 20:42
PROVIDERS: Student in an Organized Health Care Education/Training Program; Surgery; ADMIT Student in an Organized Health Care Education/Training Program
PROC: 0WUF4JZ Supplement Abdominal Wall with Synthetic Substitute, Percutaneous Endoscopic Approach (ICD-10-PCS; principal; 2024-11-21 15:00)
PROC: 8E0W4CZ Robotic Assisted Procedure of Trunk Region, Percutaneous Endoscopic Approach (ICD-10-PCS; principal; 2024-11-21 15:00)
DX: K43.9 Ventral hernia without obstruction or gangrene (principal); K42.9 Umbilical hernia without obstruction or gangrene; I10 Essential (primary) hypertension; E11.40 Type 2 diabetes mellitus with diabetic neuropathy, unspecified; G89.29 Other chronic pain; Z79.899 Other long term (current) drug therapy; Z88.5 Allergy status to narcotic agent; Z88.8 Allergy status to other drugs, medicaments and biological substances
CPT/HCPCS: 36415; 74177; 80053; 81001; 82947; 83605; 83690; 83735; 85025; 85610; 96361; 96365; 99285-25; A6590; A9270; G0378; J1100; J1885; J2250; J2371; J2405; J2704; J3010; J3480; J7030; J7042; J7050; J7120; Q9967

== ENCOUNTER 2025-03-18 18:41 | Emergency (ER) | payer MEDICARE ==
[~2025-03-18] VITALS: Ht 157.5 cm; Wt 56.7 kg
[2025-03-18] MEDS ORDERED: Ketorolac Tromethamine 15mg Vial IV ONE (19:15)
[2025-03-18 19:29] LABS: BASOPHILS ABSOLUTE AUTO 0.10 K/mm3 (0.00-0.23); BASOPHILS PERCENT AUTO 1 % (0-2); EOSINOPHILS ABSOLUTE AUTO 0.02 K/mm3 (0.00-0.68); EOSINOPHILS PERCENT AUTO 0 % (0-6); Hematocrit 33.3 % (33.0-51.0); Hemoglobin 11.6 g/dL (11.5-16.0); IMMATURE GRAN ABSOLUTE AUTO 0.03 K/mm3 (0.00-0.10); IMMATURE GRAN PERCENT AUTO 0 % (0-1); LYMPHOCYTES ABSOLUTE AUTO 1.12 K/mm3 (0.84-5.20); LYMPHOCYTES PERCENT AUTO 9 % (21-46); MONOCYTES ABSOLUTE AUTO 0.53 K/mm3 (0.16-1.47); MONOCYTES PERCENT AUTO 4 % (4-13); Mean Corpuscular HGB Conc 34.8 g/dL (31.5-36.5); Mean Corpuscular Volume 86 fL (80-100); NEUTROPHILS ABSOLUTE AUTO 10.25 K/mm3 (1.96-9.15); NEUTROPHILS PERCENT AUTO 85 % (41-73); NRBC ABSOLUTE 0.00 K/mm3 (0.00-0.02); NRBC Auto 0.0 /100 WBC (0.0-0.2); Platelet Count 277 K/mm3 (150-400); RDW Coefficient Variation 14.4 % (11.7-14.2); RDW Standard Deviation 45.2 fL (35.1-46.3)
[2025-03-18 20:00] LABS: Alanine Aminotransfer (ALT/SGP 25.0 U/L (12-78); Albumin, Blood 4.0 g/dL (3.4-5.0); Albumin/Globulin Ratio 1.2 (0.8-1.8); Anion Gap 11.0 mmol/L (3-11); Aspartate Aminotrans (AST/SGOT 21.0 U/L (12-37); Bilirubin, Total 0.6 mg/dL (0.1-1.0); Blood Urea Nitrogen 16.0 mg/dL (8-24); CO2, Blood 24.0 mmol/L (21-32); Calcium, Blood 9.0 mg/dL (8.5-10.1); Chloride, Blood 99.0 mmol/L (98-108); Creatinine, Blood 0.94 mg/dL (0.40-1.00); Globulin, Blood 3.3 g/dL (2.2-4.0); Glucose, Blood 191.0 mg/dL (70-99); Potassium, Blood 3.8 mmol/L (3.5-5.5); Sodium, Blood 130.0 mmol/L (136-145); Total Protein, Blood 7.3 g/dL (6.4-8.2)
[2025-03-18] MEDS ORDERED: Morphine Sulfate 4 MG/1 ML Injection IV ONE (21:25)
[2025-03-18] MEDS ORDERED: NS 1,000 ML IV SCH (21:25)
[2025-03-18] MEDS ORDERED: RX Prepack 6 Tabs Oxycodone 5mg UD ONE (22:55)
[2025-03-18] MEDS ORDERED: Percocet 5-3251 EACH PO (22:56)
[2025-03-18 23:35] VITALS: BP 170/73
== END 2025-03-18 23:46 | disposition home or self-care (01) ==
LOC: ER 18:41
PROVIDERS: Student in an Organized Health Care Education/Training Program
DX: S42.291A Other displaced fracture of upper end of right humerus, initial encounter for closed fracture (principal); S42.211A Unspecified displaced fracture of surgical neck of right humerus, initial encounter for closed fracture; S22.31XA Fracture of one rib, right side, initial encounter for closed fracture; I10 Essential (primary) hypertension; E11.9 Type 2 diabetes mellitus without complications; W18.30XA Fall on same level, unspecified, initial encounter; Z79.899 Other long term (current) drug therapy; Z79.4 Long term (current) use of insulin; Z88.5 Allergy status to narcotic agent; Z88.8 Allergy status to other drugs, medicaments and biological substances; Z79.82 Long term (current) use of aspirin
CPT/HCPCS: 73200; 80053; 85025; 96374; 96375; 99283-25; A9270; J1885; J2270; J7030